=== PATIENT | male | born 1990 | race African-American/Black ===

== ENCOUNTER 2017-03-06 22:08 | Emergency (ER) | payer OTHER ==
[~2017-03-06] VITALS: Ht 175.3 cm; Wt 85.7 kg
[2017-03-07 00:10] VITALS: BP 124/85
== END 2017-03-07 00:12 ==
LOC: EME 22:08 → EDBD 22:08 → EME 03-07 00:12
DX: S61.412A Laceration without foreign body of left hand, initial encounter (principal); W45.8XXA Other foreign body or object entering through skin, initial encounter; Y93.67 Activity, basketball; Y92.149 Unspecified place in prison as the place of occurrence of the external cause; Z23 Encounter for immunization
CPT/HCPCS: 73130; 99281; 99283